=== PATIENT | male | born 1980 | race Caucasian/White ===

== ENCOUNTER 2021-03-08 14:50 | Emergency (ER) | payer BC, SELFPAY ==
--- NOTE | ~2021-03-08 | XR_ITS ---
EXAMINATION: XR chest 1V portable EXAM DATE: 03/08/2021 16:15 INDICATION: Palpitation, anxiety episodes last night and today. TECHNIQUE: Portable AP frontal chest x-ray was obtained. There is no prior study for comparison. FINDINGS: The lungs are clear. There are no pleural effusions. The cardiomediastinal silhouette is within normal limits. There is no pneumothorax suspected. The bones and soft tissues are unremarkab le. IMPRESSION: No acute cardiopulmonary findings. Reviewed, dictated and finalized at location A.
[2021-03-08 14:58] VITALS: BP 171/99; PULSE 76; RESP 18; TEMP 36.9; O2SAT 100
[2021-03-08 15:04] VITALS: PULSE 73
--- NOTE | 2021-03-08 15:11 | ECG_ITS ---
Measurements Intervals [place] Rate: 72 P: 57 CO: 151 QRS: 35 QRSD: 84 T: 49 QT: 392 QTc: 430 Interpretive Statements SINUS RHYTHM POSSIBLE LEFT ATRIAL ENLARGEMENT BASELINE ARTIFACT- I, II, AVR, AVL BORDERLINE ECG Electronically Signed On 03-08-2021 17:07:11 CDT by Ming Gaviria D.O.
[2021-03-08] MEDS: LORazepam (*CRX) 0.5 MG TABLET 1 MG PO (16:04)
--- NOTE | 2021-03-08 16:04 | ED.GENADULT ---
HPI - General Adult General Chief complaint: Unspecified Stated complaint: dizzy, numbness to entire body since last night Time Seen by Provider: 03/08/21 15:36 Source: patient, family and RN notes reviewed Mode of arrival: ambulatory Limitations: no limitations History of Present Illness HPI narrative: Patient is 40 years old white male presented to the ED with sudden onset of nervous-like feeling, chest tightness, trouble breathing, lightheadedness, jittery feeling inside, shaking feeling outside, numbness from head to toes mainly hands and feet and face, stomach upset. Started 30 minutes prior to arrival to the emergency room, almost resolved on arrival to the emergency room except quivering feeling in the stomach. Patient reported having a similar episode last night. Patient had some alcohol and some marijuana last night which is considered normal practice for him. Patient denies any fever, chills, vomiting. Patient is fully vaccinated with COVID-19. Patient selling his house, buying a new 1, have 3 kids, quite a bit of stress lately. Family history of depression and anxiety Related Data Allergies Allergy/AdvReac Type Severity Reaction Status Date / Time No Known Allergies Allergy Verified 03/08/21 15:00 Review of Systems Review of Systems: Narrative: CONSTITUTIONAL: Denies fever, chills, or sweats. EYES: Denies visual changes, redness, or discharge. ENT: Denies rhinorrhea, congestion, sore throat, or otalgia. CARDIOVASCULAR: Denies chest pain, palpitations, or edema. RESPIRATORY: Denies cough or dyspnea. GASTROINTESTINAL: Denies abdominal pain, nausea, vomiting, or diarrhea. GENITOURINARY: Denies dysuria or hematuria. SKIN: Denies rash or itching. MUSCULOSKELETAL: Denies back pain, joint pain, or myalgia. NEUROLOGIC: Denies headache, numbness, or weakness. PSYCHIATRIC: Denies anxiety or depression. PMFSH Social History Social History Gender identity (if verbalized by the patient): Male Exam Narrative: Exam Narrative: General appearance: Well-developed, well-nourished Skin: Normal color Head: Normocephalic, nontraumatic Eyes: Clear conjunctiva ENT: Oropharynx normal, ears normal, nose normal Neck: Supple, nontender Chest and respiratory: Airway patent, no respiratory distress, no accessory muscle use Heart: Regular rate/rhythm Abdomen: Soft, nontender, no organomegaly, quiet bowel sounds Vascular: Normal peripheral pulses, normal capillary refill. Musculoskeletal: Normal range of motion, nontender back Neurologic: Alert and oriented ?3, [employer] is normal as tested, no gross motor deficit Course Course Emergency Course: Improving Vital Signs Vital signs: Vital Signs Temperature 36.9 C 03/08/21 14:58 Pulse Rate 76 03/08/21 14:58 Respiratory Rate 18 03/08/21 14:58 Blood Pressure 171/99 H 03/08/21 14:58 Pulse Oximetry 100 03/08/21 14:58 Temperature 36.9 C 03/08/21 14:58 Pulse Rate 73 03/08/21 15:04 Respiratory Rate 18 03/08/21 14:58 Blood Pressure 171/99 H 03/08/21 14:58 Pulse Oximetry 100 03/08/21 14:58 Medical Decision Making MDM Narrative Medical decision making narrative: Anxiety related symptom is my concern. Differential Diagnosis Differential Diagnosis: Anxiety-like symptoms, panic attack, electrolyte imbalance, thyroid disorder Vital Signs Vital Signs: Vital Signs Temperature 36.9 C 03/08/21 14:58 Pulse Rate 76 03/08/21 14:58 Respiratory Rate 18 03/08/21 14:58 Blood Pressure 171/99 H 03/08/21 14:58 Pulse Oximetry 100 03/08/21 14:58 Temperature 36.9 C 03/08/21 14:58 Pulse Rate 73 03/08/21 15:04 Respiratory R
[2021-03-08 16:28] LABS: Basophils Percent Auto 0.3 % (0.2-1.2); Eosinophils Absolute Auto 0.1 K/mm3 (0-0.3); Eosinophils Percent Auto 0.7 % (0-4.4); Hematocrit 46.9 % (42.0-52.0); Hemoglobin 15.2 g/dL (14.0-18.0); Immature Granulocyte Absolute 0.04 K/mm3 (0.00-0.031); Immature Granulocyte Percent A 0.5 % (0-0.5); Lymphocytes Percent Auto 37.8 % (18.3-44.2); Mean Corpuscular HGB Conc 32.4 g/dl (32-36); Mean Corpuscular Hemoglobin 30.3 pg (26-34); Mean Corpuscular Volume 93.6 fl (80-100); Mean Platelet Volume 10.7 fl (7.4-10.4); Monocytes Absolute Auto 0.6 K/mm3 (0.1-0.6); Monocytes Percent Auto 7.1 % (2.6-8.5); Neutrophils Absolute Auto 4.7 K/mm3 (1.3-6.7); Neutrophils Percent Auto 53.6 % (45.5-73.1); Platelet Count Result 287 k/mm3 (150-375); Red Blood Count 5.01 M/mm3 (4.6-6.20); White Blood Count 8.7 K/mm3 (4.5-10.0)
[2021-03-08 16:35] LABS: Add Urine Microscopic? YES; Appearance Urine Cloudy (Clear); Bilirubin Urine Negative (Negative); Blood Urine Negative (Negative); Color Urine Yellow (Yellow); Glucose Urine UA Negative (Negative); Ketones Urine Trace mg/dL (Negative); Leukocyte Esterase Ur Negative LEU/UL (Negative); Mucus Urine Rare /lpf; Nitrate Urine Negative (Negative); Protein Urine Negative (Negative); Specific Grav Ur 1.009 (1.001-1.035); Urobilinogen Urine Negative mg/dL (<2.0); WBC Urine 0-3 /hpf
--- NOTE | 2021-03-08 16:36 | PC.NURSE ---
nuris Wan, added on EtOH
[2021-03-08 16:37] LABS: Alanine Aminotransferase 19 U/L (4-50); Alkaline Phosphatase 56 U/L (38-126); Anion Gap 14 mmol/L (8-16); Aspartate Amino Transferase 28 U/L (17-59); Bilirubin,Total 0.6 mg/dL (0.2-1.3); Blood Urea Nitrogen 15 mg/dL (9-20); Calcium 9.9 mg/dL (8.4-10.2); Carbon Dioxide 20 mmol/L (22-30); Chloride 103 mmol/L (98-107); Estimated CRCL calculation 75 ml/min; Estimated Glomerular Filt Rate > 60; Glucose 117 mg/dL (65-110); Potassium 3.5 mmol/L (3.4-5.0); Sodium 137 mmol/L (137-145)
[2021-03-08 16:49] LABS: Troponin I < 0.012 ng/mL (0.000-0.034)
[2021-03-08 16:51] LABS: Amphetamine Screen Urine Negative (Negative); Barbiturate Screen Urine Negative (Negative); Benzodiazepines Screen Urine Negative (Negative); Cannabinoid Screen Urine Positive (Negative); Cocaine Screen Urine Negative (Negative); Methadone Screen Urine Negative (Negative); Opiate Screen Urine Negative (Negative); Phencyclidine Screen Urine Negative (Negative)
[2021-03-08 16:57] LABS: Ethanol < 10 mg/dL (<10)
[2021-03-08 17:33] VITALS: BP 133/75; PULSE 78; RESP 16; O2SAT 100
== END 2021-03-08 17:34 | disposition home or self-care (01) ==
PROVIDERS: Emergency Provider Emergency Medicine
DX: F41.9 Anxiety disorder, unspecified (principal); R94.31 Abnormal electrocardiogram [ECG] [EKG]
CPT/HCPCS: 36415; 71045; 80053; 80307; 81001; 84443; 84484; 85025; 93005; 99284; A9270